=== PATIENT | female | born 1985 | race Caucasian/White ===

== ENCOUNTER 2020-01-05 11:45 | Outpatient (CLI) | payer OTHER ==
--- NOTE | 2020-01-05 14:11 | XRAY Report ---
Reason: STATUS POST SURGERY Procedure Date: 01/05/2020 Accession Number: [id number] / [id number] Procedure: XR - Tib/Fib RT CPT Code: Final Report FULL RESULT: EXAM: RIGHT TIBIA/FIBULA RADIOGRAPHY EXAM DATE: 01/05/2020 11:59 AM. CLINICAL HISTORY: Status post surgery. COMPARISON: ANKLE 3 VIEW RT 01/05/2020 11:59 AM FOOT 3 VIEW RT 01/05/2020 11:59 AM. TECHNIQUE: 2 views. FINDINGS: Generalized bony demineralization of the distal tibia and fibula. 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 Intact intramedullary paula extending from the mid diaphysis of the tibia through the talus and into the calcaneus, with bone fusion. IMPRESSION: Postsurgical changes at the ankle. The proximal aspect of the tibia and fibula appear within normal limits. [facility]
--- NOTE | 2020-01-05 14:11 | XRAY Report ---
Reason: STATUS POST SURGERY Procedure Date: 01/05/2020 Accession Number: [id number] / [id number] Procedure: XR - Foot 3 View RT CPT Code: Final Report FULL RESULT: EXAM: RIGHT FOOT RADIOGRAPHY EXAM DATE: 01/05/2020 11:59 AM. CLINICAL HISTORY: Status post surgery. COMPARISON: ANKLE 3 VIEW RT 01/05/2020 11:59 AM. TECHNIQUE: 3 views. FINDINGS: Stable generalized bony demineralization at the ankle, compatible with limited use of the lower extremity. Previous fusion of the distal fibula, talus, and calcaneus with intramedullary paula and screw fixation. Screw plate fixation bridging the 1st metatarsophalangeal articulation. Elsewhere, no acute bone processes detected. The articulations of the midfoot and the forefoot appear stable. IMPRESSION: Normal alignment of postsurgical changes at the ankle and right first metatarsal phalangeal articulation. [facility]
--- NOTE | 2020-01-05 14:36 | XRAY Report ---
Reason: STATUS POST SURGERY Procedure Date: 01/05/2020 Accession Number: [id number] / [id number] Procedure: XR - Ankle 3 View RT CPT Code: Final Report FULL RESULT: EXAM: RIGHT ANKLE RADIOGRAPHY EXAM DATE: 01/05/2020 11:59 AM. CLINICAL HISTORY: Status post surgery. COMPARISON: None. TECHNIQUE: 3 views. FINDINGS: Generalized bony demineralization at the ankle. Intact intramedullary paula extends from the tibia through the talus and into the calcaneus, with intact fixation screws. 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 Partially imaged screw plate fixation at the first metatarsophalangeal articulation. Bone fusion of the distal tibia, talus, and calcaneus. IMPRESSION: Postsurgical changes at the ankle, with bone fusion. [facility]
== END 2020-01-05 11:46 | disposition home or self-care (01) ==
LOC: DI 11:45
PROVIDERS: ATTEND Physician Assistant Surgical
DX: Z98.890 Other specified postprocedural states (principal)